=== PATIENT | female | born 1985 ===

== ENCOUNTER 2016-12-18 21:33 | Emergency (ER) | payer SELFPAY ==
[2016-12-18 23:16] LABS: ABSOLUTE NEUTROPHIL COUNT 4.5 K/mm3 (1.8-7.7); BASO % 0.3 % (0.2-1.0); EOS # 0.1 (0.0-0.5); EOS % 0.7 % (0.9-2.9); HEMATOCRIT 38.8 % (37.0-47.0); HEMOGLOBIN 13.5 gm/l (12.0-16.0); IMM NEUT% 0.3 % (0-1); LYMPH # 2.3 (1.0-4.8); LYMPH % 30.5 % (15-45); MEAN CELL VOLUME 94.2 fl (81.0-99.0); MEAN CORPUSCULAR HEMOGLOBIN 32.8 pg (27.0-31.0); MEAN CORPUSCULAR HGB CONC 34.8 g/dl (33.0-37.0); MEAN PLATELET VOLUME 9.4 fl (7.4-10.4); MONO # 0.7 (0.0-0.8); MONO % 8.6 % (4-12); NEUT % 59.6 % (43-75); PLATELET COUNT 241 K/mm3 (130-400); RED CELL DISTRIBUTION WIDTH 12.6 % (11.5-14.5)
[2016-12-19 00:39] LABS: URINE BILIRUBIN NEGATIVE (NEGATIVE); URINE BLOOD 3+ (NEGATIVE); URINE GLUCOSE (UA) NEGATIVE (NEGATIVE); URINE LEUKOCYTE ESTERASE TRACE (NEGATIVE); URINE NITRITE NEGATIVE (NEGATIVE); URINE PROTEIN NEGATIVE (NEGATIVE); URINE UROBILINOGEN NORMAL (0-1 mg/dl)
[2016-12-19 00:48] LABS: URINE APPEARANCE SL CLOUDY; URINE COLOR YELLOW
[2016-12-19 01:04] LABS: URINE BACTERIA 1+
--- NOTE | 2016-12-19 08:59 | US ---
OB ULTRASOUND LESS THAN 14 WEEKS HISTORY: Bleeding, . 6 weeks 1 day. Transabdominal and transvaginal obstetric ultrasound was performed. FINDINGS: INTRAUTERINE GESTATION: Present. MEAN SAC DIAMETER: 2.6 cm, corresponding to an age of 7 weeks 2 days. Grossly unremarkable sac morphology and fluid volume. CROWN-RUMP LENGTH: 1.4 cm, corresponding to an age of 7 weeks 5 days. The embryonic pole demonstrates a slightly featureless appearance. CARDIAC ACTIVITY: Present, with a heart rate of 144 beats per minute. SONOGRAPHIC MEAN GESTATIONAL AGE: 7 weeks 5 days. SONOGRAPHIC EDC: 08/02/2017. YOLK SAC: Present. WILLIAM-GESTATIONAL HEMORRHAGE: Not identified. RIGHT OVARY: 3.6 x 2.6 x 1.9 cm. LEFT OVARY: 3.0 x 2.7 x 2.4 cm. FOCAL ADNEXAL LESIONS:None. OVARIAN BLOOD FLOW: Documented bilaterally. FREE FLUID: None. IMPRESSION: 1. Single live intrauterine gestation sonographically dating 7 weeks 5 days. No perigestational hemorrhage, dominant maternal adnexal lesion, or free fluid noted. 2. Mildly anomalous appearance of pole, recommend continued short-term follow-up follow-up beta hCG values and/or imaging. Preliminary report relayed to the Emergency Medicine medical service by Dr. Gomez on 12/19/2016 at 0144 hours.
== END 2016-12-19 02:08 | disposition home or self-care (01) ==
LOC: ED 21:33
DX: O26.851 Spotting complicating pregnancy, first trimester (principal); Z3A.01 Less than 8 weeks gestation of pregnancy